=== PATIENT | male | born 1975 | race American Indian/Alaskan Native ===

== ENCOUNTER 2017-02-09 00:27 | Emergency (ER) | payer OTHER ==
[2017-02-09 00:41] VITALS: BP 125/76; PULSE 77; RESP 16; TEMP 98.6; O2SAT 98
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
== END 2017-02-09 01:49 | disposition home or self-care (01) ==
LOC: H.ER 00:27
DX: S60.519A Abrasion of unspecified hand, initial encounter (principal); Y04.0XXA Assault by unarmed brawl or fight, initial encounter; Y92.89 Other specified places as the place of occurrence of the external cause